=== PATIENT | female | born 1965 | race Hispanic/Latino ===

== ENCOUNTER 2017-04-05 08:28 | Outpatient (RCR) | payer OTHER | END 2017-04-29 | LOC: OT 08:28 | PROVIDERS: ATTEND Surgery Surgery of the Hand | DX: S62.617D Displaced fracture of proximal phalanx of left little finger, subsequent encounter for fracture with routine healing (principal); M79.642 Pain in left hand; M25.642 Stiffness of left hand, not elsewhere classified | CPT/HCPCS: 97022 ×2; 97110 ×2; 97139; L3929 ==